=== PATIENT | female | born 2000 | race Caucasian/White ===

== ENCOUNTER 2021-02-04 11:18 | Emergency (ER) | payer OTHER ==
[~2021-02-04] VITALS: Ht 162.6 cm; Wt 101.7 kg
[2021-02-04 11:45] LABS: BASOPHILS % (AUTO) 1 % (0-1); EOSINOPHILS % (AUTO) 1 % (1-7); LYMPHOCYTES % (AUTO) 25 % (22-44); MEAN CORPUSCULAR HEMOGLOBIN 16.6 pg (27.0-34.8); MEAN PLATELET VOLUME 8.7 fL (7.4-10.4); MONOCYTES % (AUTO) 6 % (2-9); NEUTROPHILS % (AUTO) 68 % (42-75); PLATELET COUNT 479 x10^3/uL (130-400); RED CELL DISTRIBUTION WIDTH 22.9 % (9.6-15.2)
[2021-02-04 11:55] LABS: ALANINE AMINOTRANSFERASE 13 U/L (12-78); ALBUMIN 3.7 g/dL (3.4-5.0); ANION GAP 7 mmol/L (5-15); CALCIUM 9.2 mg/dL (8.5-10.1); CHLORIDE 108 mmol/L (98-107)
[2021-02-04 11:58] LABS: ALKALINE PHOSPHATASE 87 U/L (45-117); BILIRUBIN,TOTAL 0.3 mg/dL (0.2-1.0); TOTAL PROTEIN 7.9 g/dL (6.4-8.2)
[2021-02-04 12:04] LABS: MEAN CORPUSCULAR HGB CONC 28.7 g/dL (32.4-35.8)
[2021-02-04 12:15] LABS: ANISOCYTOSIS 2+; MICROCYTOSIS 2+
[2021-02-04 12:16] LABS: <PLATELET ESTIMATE> INCREASED; HYPOCHROMIA 3+; OVALOCYTES 1+; POLYCHROMASIA 1+
[2021-02-04 12:22] LABS: LARGE PLATELETS 1+
[2021-02-04 12:23] LABS: TARGET CELLS 1+; TEAR DROPS 1+
[2021-02-04] MEDS ORDERED: SODIUM CHLORIDE 0.9% 1,000ML IVBOLUS ONE (13:00)
[2021-02-04 14:40] VITALS: BP 117/75
[2021-02-04 14:55] VITALS: BP 116/72
[2021-02-04 15:57] VITALS: BP 114/80
[2021-02-04 16:28] VITALS: BP 148/60
== END 2021-02-04 16:41 | disposition home or self-care (01) ==
LOC: ED 16:15
DX: D62 Acute posthemorrhagic anemia (principal); N93.8 Other specified abnormal uterine and vaginal bleeding; R06.02 Shortness of breath
CPT/HCPCS: 36415; 36430; 71045; 80053; 84703; 85025; 86850; 86900; 86923; 93005; 96360; 99285; J7030; P9016